=== PATIENT | female | born 1980 | race Caucasian/White ===

== ENCOUNTER 2017-01-15 12:29 | Emergency (ER) | payer BC, SELFPAY ==
--- NOTE | 2017-01-20 23:43 | ER ---
ADMIT: 01/15/2017 RM/LOC: ER [facility] MR#: [id number] [id number] [place], [place] [id number] SEN, [place] [address] Emergency Room Report SEX: F AGE: 36 : 1980 DATE: 01/15/2017 HISTORY OF PRESENT ILLNESS: Ms. Shepherd is a 36-year-old female, who presents to the emergency room complaining of 2 days of symptoms. Her symptoms are quite generalized and they include nausea, dizziness, and weakness, which is general sharp pain that started down in her arms yesterday. She has not been sleeping. She feels like there is something wrong. She also adds that yesterday she had a very stressful day. She ended up driving to [place], which always makes her nervous and apparently has a daughter who has some medical issues and she was there for 8 hours. By the time she got home, she was super stress and was unable to sleep and relax. REVIEW OF SYSTEMS: Negative. PAST MEDICAL HISTORY: She had an appendectomy. MEDICATIONS: She has taken spironolactone and is still taking it. ALLERGIES: SHE IS NOT ALLERGIC TO ANY MEDICATION. SOCIAL HISTORY: She drinks alcohol nightly in the form of wine and smokes a pack a day. PHYSICAL EXAMINATION: On examination, which was done by PA student, Rivera Bowers in my presence. GENERAL: The patient is alert and oriented, mildly anxious. HEENT: Normal inspection. NECK: Supple. RESPIRATIONS: No distress. CVS: Regular in rate and rhythm. Essentially, all her physical examination is within normal limits. VITAL SIGNS: Blood pressure is 183/100, heart rate is 93, respirations 20, temp 98.9, and O2 sats 100%. LABORATORY DATA: We did order basic labs on her. The white count is 4.4, the hemoglobin is 14.7 with a platelet of 217. Her chemistry shows a glucose of 106. Her urine shows specific gravity of 1.001, no infection, no blood, no leukocytes, and no nitrates. As I went in to give her the news of the labs and chat with her little bit, I realized that there is an element of anxiety at this point. She does have an extensive family history of hypothyroidism. Last time, she had her thyroid ADMIT: 01/15/2017 RM/LOC: ER [facility] MR#: [id number] [address] [id number] [place], [address] [place] [address] Emergency Room Report SEX: F AGE: 36 : 1980 checked was 4 years ago and has not gone to a doctor since, so I recommended that she followed up; that will be something that she would need to do in order to make sure that she does not have some problems with her thyroid or any hormonal changes. Her blood pressure at the time of admission to the ER was quite elevated 183/100. At the time, I went in to report lab findings, it was 127/91, much improved. She was more relaxed. Her mother was at bedside. CLINICAL IMPRESSION: Generalized myalgia. I discussed a short treatment with benzodiazepine short-acting, and she agreed to it until she sees a primary provider that can do some further testing. She promised to follow up with Dr. Carranza and get some testing done in order to find out what is causing her sudden anxiety issues. ARMIDA Mendoza / Armando Merritt MD / jaycob JOB #: [id number] CC: Armando Merritt MD, Attending Physician Melanie Carranza MD, Family Physician
== END 2017-01-15 14:50 | disposition home or self-care (01) ==
LOC: ER 12:29
DX: M79.1 Myalgia (principal); F17.210 Nicotine dependence, cigarettes, uncomplicated; Z90.49 Acquired absence of other specified parts of digestive tract